=== PATIENT | female | born 1950 ===

== ENCOUNTER 2022-01-19 16:59 | Outpatient (CLI) | payer MEDICARE, OTHER, SELFPAY ==
[2022-01-19 11:04] LABS: Albumin* 4.6 g/dL (3.3-5.0)
[2022-01-19 11:05] LABS: Chloride* 99 mmol/L (96-114); Potassium* 3.9 mmol/L (3.6-5.1); Sodium* 139 mmol/L (135-149)
[2022-01-19 11:07] LABS: Carbon Dioxide* 30 mmol/L (20-32); Cholesterol* 169 mg/dL (90-199); Creatinine* 1.2 mg/dL (0.5-1.5); Estimated Glomerular Filt Rate 49 ml/min
[2022-01-19 11:08] LABS: Alanine Aminotransferase* 47 U/L (4-35); Alkaline Phosphatase* 83 U/L (40-150); Aspartate Amino Transferase* 48 U/L (12-35); Bilirubin Total* 0.6 mg/dL (0.1-1.5); Blood Urea Nitrogen* 21 mg/dL (7-30); Glucose* 99 mg/dL (60-115); TSH With Reflex to FT4* 0.059 uIU/mL (0.270-4.200); Triglycerides* 69 mg/dL (40-149)
[2022-01-19 11:20] LABS: HDL Cholesterol* 117 mg/dL (>=50); LDL Cholesterol Calculated 38 mg/dL (<100)
[2022-01-19 11:38] LABS: Free T4 Free Thyroxine* 1.39 ng/dL (0.70-1.85)
== END 2022-01-19 17:00 | disposition home or self-care (01) ==
PROVIDERS: PCP Internal Medicine; Visit Provider Internal Medicine
DX: E03.9 Hypothyroidism, unspecified (principal); I25.10 Atherosclerotic heart disease of native coronary artery without angina pectoris
CPT/HCPCS: 80053; 80061; 84439; 84443

== ENCOUNTER 2022-04-18 13:20 | Outpatient (CLI) | payer MEDICARE, OTHER, SELFPAY ==
--- NOTE | 2022-04-18 13:20 | CRLHL7_ITS ---
For Patients: As a result of the Century Cures Act, medical imaging exams and procedure reports are released immediately into your electronic medical record. You may view this report before your referring provider. If you have questions, please contact your health care provider. BILATERAL SCREENING MAMMOGRAM WITH COMPUTER-AIDED DETECTION TECHNIQUE: CC and MLO views were obtained. These mammographic images have been obtained using full-field digital technique. These mammographic images were interpreted with the benefit of computer-aided detection. COMPARISON FILM: 01/30/20; 02/24/19; 12/25/17. FINDINGS: The breasts are almost entirely fatty IMPRESSION: There is no radiographic evidence for malignancy. ASSESSMENT: BI-RADS Category 1: Negative RECOMMENDATION: Routine screening mammogram in 1 year. A lay language report of this examination will be provided to the patient. Alli Marsh M.D. Diagnostic Radiologist [email or web address] Transcribed: 2:38 pm DW/Dictated by: Alli Marsh MD @ 04/19/2022 12:52:00 PM (Electronically Signed)
== END 2022-04-18 13:21 | disposition home or self-care (01) ==
LOC: MAMMO 13:21
PROVIDERS: PCP Internal Medicine; Visit Provider Internal Medicine
DX: Z12.31 Encounter for screening mammogram for malignant neoplasm of breast (principal)
CPT/HCPCS: 77067

== ENCOUNTER 2023-03-13 11:07 | Outpatient (CLI) | payer MEDICARE, OTHER, SELFPAY | END 2023-03-13 11:08 | disposition home or self-care (01) | LOC: NFLDREF 03-15 05:46 | PROVIDERS: PCP Internal Medicine; Referring Provider Internal Medicine; Visit Provider Internal Medicine | DX: E03.9 Hypothyroidism, unspecified (principal); I10 Essential (primary) hypertension; E78.5 Hyperlipidemia, unspecified; R73.03 Prediabetes; I25.10 Atherosclerotic heart disease of native coronary artery without angina pectoris | CPT/HCPCS: 80053; 80061; 84439; 84443 ==

== ENCOUNTER 2024-03-17 07:51 | Outpatient (CLI) | payer MEDICARE, OTHER, SELFPAY | END 2024-03-17 07:52 | disposition home or self-care (01) | LOC: RAD 07:53 | PROVIDERS: PCP Internal Medicine; Visit Provider Internal Medicine Cardiovascular Disease | DX: I67.9 Cerebrovascular disease, unspecified (principal); I25.10 Atherosclerotic heart disease of native coronary artery without angina pectoris | CPT/HCPCS: 93306 ==

== ENCOUNTER 2024-05-09 11:08 | Outpatient (CLI) | payer MEDICARE, OTHER, SELFPAY | END 2024-05-09 11:09 | disposition home or self-care (01) | LOC: NFLDREF 05-13 08:46 | PROVIDERS: PCP Internal Medicine; Referring Provider Internal Medicine; Visit Provider Internal Medicine | DX: I25.10 Atherosclerotic heart disease of native coronary artery without angina pectoris (principal); E03.9 Hypothyroidism, unspecified; I10 Essential (primary) hypertension; R73.03 Prediabetes | CPT/HCPCS: 80053; 80061; 84443 ==

== ENCOUNTER 2024-07-22 11:07 | Emergency (ER) | payer MEDICARE, OTHER, SELFPAY ==
--- OUTSIDE RECORDS SUMMARY | 2024-07-22 11:10 | XMS_ITS | Clinical Summary ---
Author Organization [facility] Address [address] [place] [address] Care Team Providers Care Octave Board Racker Name Role Phone Jaenll Velasco MD Primary Care Provider [phone] Allergies Active Allergy Reactions Criticality Noted Date Comments Diatrizoate Allergen Edema 11/18/2019 Eyes and lips swell Dantrolene Hypertension High 11/18/2019 Iodine Edema Low 11/18/2019 Facial swelling Sulfa (Sulfonamide Antibiotics) Edema Low 11/18/2019 Facial swelling Theophylline Anaphylaxis High 11/18/2019 Fluticasone-Umeclidin- Vilanter Behavioral Disturbances,Headache Medium 11/18/2019 Medications cloNIDine HCL (CATAPRES) 0.3 mg tablet Take 0.3 mg by mouth 2 times daily. 0 Active hydroCHLOROthiaz svitlana 50 mg tablet Take 50 mg by mouth once daily. 0 Active lamoTRIgine (LAMICTAL) 200 mg tablet Take 200 mg by mouth once daily. 0 Active levothyroxine (SYNTHROID) 100 mcg tablet Take 100 mcg by mouth once daily. 0 Active PARoxetine (PAXIL) 10 mg tablet Take 10 mg by mouth once daily. 0 Active amoxicillin (AMOXIL) 500 mg capsule Take 2,000 mg by mouth each time if needed for Other (Specify) (prior to dental appt). Active omeprazole (PRILOSEC) 20 mg Delayed-Release capsule Take 20 mg by mouth once daily before a meal. Active potassium chloride (KLOR-CON M20) 20 mEq Extended-Release tablet Take 20 mEq by mouth 2 times daily with meals. Active aspirin (ECOTRIN) 81 mg enteric coated tabletIndication s:NSTEMI (non-ST elevated myocardial infarction) (HC) Take 1 tablet by mouth once daily with a meal. Take indefinitely 100 tablet 11/19/2019 9:46 AM CDT 0 Active clopidogreL (PLAVIX) 75 mg tabletIndication s:NSTEMI (non-ST elevated myocardial infarction) (HC) Take 1 tablet by mouth every morning. Take for 6 months 90 tablet 1 11/19/2019 9:46 AM CDT 0 Active rosuvastatin (CRESTOR) 20 mg tabletIndication s:NSTEMI (non-ST elevated myocardial infarction) (HC) Take 1 Tablet (20 mg) by mouth at bedtime. 90 Tablet 3 1 Active nitroglycerin (NITROSTAT) 0.4 mg sublingual tabletIndication s:Coronary artery disease, unspecified vessel or lesion type, unspecified whether angina present, unspecified whether [place] or transplanted heart Place 1 Tablet (0.4 mg) under the tongue every 5 minutes if needed for Chest Pain. DO NOT EXCEED A TOTAL OF 3 DOSES IN 15 MINUTES 25 Tablet 3 5 Active benzonatate (TESSALON) 200 mg capsule TAKE 1 CAPSULE BY MOUTH 2 TO 3 TIMES PER DAY FOR 5 DAYS NEEDED FOR COUGH 4 Active clindamycin (CLEOCIN-T) 1 % lotion APPLY LOTION TOPICALLY TWICE DAILY TO FACIAL AREAS 4 Active doxycycline 20 mg tablet 4 Active predniSONE (DELTASONE) 10 mg tabletIndication s:Chronic obstructive pulmonary disease, unspecified COPD type (HC) TAKE 4 TABLETS BY MOUTH ONCE DAILY FOR 3 DAYS THEN DROP 1 TABLET EVERY 4TH DAY UNTIL OFF OR DIRECTED 30 Tablet 1 5 Active albuterol HFA (PRO-AIR; VENTOLIN; PROVENTIL) 90 mcg/actuation inhalerIndicatio ns:Chronic obstructive pulmonary disease, unspecified COPD type (HC) Inhale 2 Puffs by mouth every 4 hours if needed for Shortness Of Breath. 3 Each 3 5 Active albuterol 0.083% (2.5 mg/3 mL) neb solutionIndicati ons:Chronic obstructive pulmonary disease, unspecified COPD type (HC) Inhale 3 mL (2.5 mg) via a nebulizer every 4 hours if needed for Shortness Of Breath. 540 mL 3 5 Active budesonide-formo teroL (SYMBICORT) 160-4.5 mcg/actuation (160-4.5 mcg each actuation) inhalerIndicatio ns:Chronic obstructive pulmonary disease, unspecified COPD type (HC) Inhale 2 Puffs by mouth two times daily. 3 Each 3 5 Active montelukast (Singulair) 10 mg tabletIndication s:Chronic obstructive pulmonary disease, unspecified COPD type (HC) Take 1 Tablet (10 mg) by mouth at bedtime. 90 Tablet 3 5 Active nebulizer accessories misc miscIndications: Chronic obstructive pulmonary disease, unspecified COPD type (HC) As directed. 3 Each 3 5 Active Active Problems Problem Noted Date Diagnosed Date Coronary artery disease invo lving [place] coronary artery of [place] heart without angina pectoris 12/26/2019 Palpitation 12/26/2019 COPD (chronic obstructive pulmonary disease) 03/2019 Asthma 11/18/2019 Hypertension 11/18/2019 Prediabetes 11/18/2019 GERD (gastroesophageal reflux disease) 0 Hypothyroidism 11/18/2019 NSTEMI (non-ST elevated myocardial infarction) 0 11/18/2019 Resolved Problems Problem Noted Date Diagnosed Date Resolved Date CKD (chronic kidney disease) 12/26/2019 12/17/2020 Encounters Date Type Department Care Team Description 05/02/2024 Orders Only [facility] Scanner 1 scan: (1-Ord) INCOMING RECORDS-DIAGNOSTIC TEST, UNKNOWN FACILITY, 05/02/2024 05/01/2024 Orders Only [facility] Scanner 1 scan: (1-Ord) INCOMING RECORDS-SLEEP STUDY, [facility], 05/01/2024 05/01/2024 Orders Only [facility] Scanner 1 scan: (1-Ord) INCOMING RECORDS-SLEEP STUDY, [facility], 05/01/2024 from Last 3 Months Family History Medical History Relation Name Comments Cancer Father Other Other No known hx of heart disease Cancer Sister breast Relation Name Status Comments Father Other Sister Social History Tobacco Use Types Packs/Day Years Used Date Smoking Tobacco: Former Smokeless Tobacco: Never Comments:stopped in 1999 Alcohol Use Standard Drinks/Week Comments Not Currently 0 (1 standard drink = 0.6 oz pur e alcohol) has been a year Financial Resource Strain Answer Date R ecorded Difficulty of Paying Living Expenses Not on file 03/19/2021 Difficulty of Paying Living Expenses Not on file 03/19/2021 Comments Unknown Sex and Gender Information Value Date Recorded Sex Assigned at Not on file Legal Sex Female 7:43 AM [employer] Gender Identity Not on file Sexual Orientation Not on file Obstetrics History Last Filed Vital Signs Vital Sign Reading Time Taken Comments Blood Pressure 134/76 04/04/2024 12:13 PM [employer] Pulse 86 04/04/2024 12:13 PM [employer] Temperature 36.6 C (97.8 F) 11/19/2019 8:45 AM CDT Respiratory Rate 18 11/19/2019 8:45 AM CDT Oxygen Saturation 96% 04/04/2024 12:13 PM [employer] Inhaled Oxygen Concentration - - Weight 81.6 kg (180 lb) 04/04/2024 12:13 PM [employer] Height 167.6 cm (5' 6) 04/04/2024 12:13 PM [employer] Body Mass Index 29.05 04/04/2024 12:13 PM [employer] Plan of Treatment Health Maintenance Due Date Last Done Comments Tdap 08/31/1962 Depression screening for age 12+ 1963 Hepatitis C screening for age 18-79 08/31/1969 Pneumococcal series for age 50+ (1 of 2 - PCV) 08/31/1970 Tetanus booster 1971 Colonoscopy through age 75 08/31/1996 Mammogram for age 45-75 08/31/1996 Zoster (shingles) series for age 50+ (1 of 2) 08/31/2001 RSV vaccine for adults or pr egnancy (1 - Risk 60-74 years 1-dose series) 2011 DEXA/DXA scan for age 65+ 08/31/2016 Medicare Wellness for age 65+ 08/31/2016 COVID-19 vaccine series ( - season) 2023 06/16/2020, 05/18/2020 Influenza Vaccine (Season Ended) 2024 Lipids for age 45-75 11/17/2024 11/18/2019 BMI (ht and wt on same day) for age 18+ 04/04/2025 0 04/04/2024 Procedures Procedure Name Priority Date/Time Associated Diagnosis Comments SCAN CORRESP-DIAGNOSTICS 05/02/2024 12:00 AM [employer] SCAN CORRESP-DIAGNOSTICS 05/01/2024 12:00 AM [employer] SCAN CORRESP-DIAGNOSTICS 05/01/2024 12:00 AM [employer] LIPID PANEL Add On 11/18/2019 3:58 AM CDT from Last 3 Months or Most Recently Relevant to Health Maintenance Results * SCAN CORRESP-DIAGNOSTICS (05/02/2024 12:00 AM P[employer]ER) us Scanner OTHER Final Result * SCAN CORRESP-DIAGNOSTICS (05/01/2024 12:00 AM PIPE [employer]ER) us Scanner OTHER Final Result * SCAN CORRESP-DIAGNOSTICS (05/01/2024 12:00 AM P[employer]) us Scanner OTHER Final Result * Lipid Panel AM (11/18/2019 3:58 AM CDT) CHOLESTEROL,TOTAL 184 100 - 199 mg/dL 11/18/2019 5:44 AM CDT [facility] TRIGLYCERIDES 143 <150 mg/dL 11/18/2019 5:44 AM CDT [facility] HDL CHOLESTEROL 61 >40 mg/dL 0 5:44 AM CDT [facility] NON-HDL CHOLESTEROL 123 <145 mg/dl 11/18/2019 5:44 AM CDT [facility] CHOL/HDL RATIO 3.02 <4.50 11/18/2019 5:44 AM CDT [facility] LDL CHOLESTEROL 94 <=130 mg/dL 11/18/2019 5:44 AM CDT [facility] TR[facility] PROVIDER ORDERED STATUS RANDOM 11/18/2019 5:44 AM CDT [facility] TR[facility] LABOR[facility]ORY Blood BLOOD SPECIMEN / Unknown Capillary / Unknown 11/18/2019 3:58 AM CDT 11/18/2019 4:21 AM CDT us Sergio Crowell MD CHEMISTRY Ene l Result [facility] [address] [place] [address], [place] from Last 3 Months or Most Recently Relevant to Health Maintenance Insurance MEDICA [employer]IME SOL[employer] [place] MED[employer] PRIME [employer] MR PB ONLY Advance Directives * Full Code (Latest Code Status on File) Date Activated Date Inactivated Comments 11/18/2019 2:52 AM 11/19/2019 3:07 PM Question Answer Comments Code Status Discussion: Discussed Care Teams Octave Board Racker Relationship Specialty Start Date End Date Janell Velasco MD [address] [place] [address] (work) PCP - General Internal Medicine 11/27/19
[2024-07-22 11:14] VITALS: BP 117/67; PULSE 94; RESP 18; TEMP 36.1; O2SAT 98; BMI 31.5
--- NOTE | 2024-07-22 11:21 | ED_ITS ---
HPI - Neck Pain/Injury General Time Seen by Provider: 11:22 Date Seen: 07/22/24 Chief Complaint: Neck Injury/Pain Stated Complaint: Pain in neck Time Seen by Provider: 07/22/24 11:21 Source: patient and RN notes reviewed Mode of arrival: ambulatory Limitations: no limitations Related Data Home Medications ?Medication ?Instructions ?Recorded ?Confirmed Lactobacillus acidophilus 10 mg PO QDAY 01/24/22 03/20/24 acetaminophen 500 mg capsule 500 mg PO Q6H PRN 01/24/22 03/20/24 albuterol 90 mcg/actuation aerosol 2 spray inhalation PRN 01/24/22 03/20/24 inhaler albuterol sulfate 1.25 mg/3 mL 1.25 mg continuous nebulization PRN 01/24/22 03/20/24 solution for nebulization ascorbic acid (vitamin C) 500 mg 1 mg PO 01/24/22 03/20/24 capsule aspirin 81 mg tablet,delayed 81 mg PO DAILY 01/24/22 03/20/24 release budesonide-formoterol HFA 160 2 inhalation BID 01/24/22 03/20/24 mcg-4.5 mcg/actuation aerosol inhaler cholecalciferol (vitamin D3) 25 25 mcg PO DAILY 01/24/22 03/20/24 mcg (1,000 unit) tablet clindamycin phosphate 1 % lotion 1 topical BID 01/24/22 03/20/24 folic acid 400 mcg tablet 0.4 mg PO QDAY 01/24/22 03/20/24 magnesium 200 mg tablet 400 mg PO QDAY 01/24/22 03/20/24 montelukast 10 mg tablet 10 mg PO .Bedtime 01/24/22 03/20/24 nitroglycerin 0.4 mg sublingual 0.4 mg sublingual PRN 01/24/22 03/20/24 tablet melatonin PO .hs 02/05/24 03/20/24 multivitamin (One-A-Day Essential 1 tab PO QDAY 02/05/24 03/20/24 tablet) nitroglycerin [Nitrostat] sublingual .prn 02/05/24 03/20/24 turmeric PO DAILY 02/05/24 03/20/24 vitamin A palmitate PO DAILY 02/05/24 03/20/24 vitamin B complex [B PO DAILY 02/05/24 03/20/24 Complex-Vitamin B12] vitamin E acetate PO DAILY 02/05/24 03/20/24 doxycycline hyclate 20 mg tablet 20 mg PO BID 03/20/24 03/20/24 Previous Rx's ?Medication ?Instructions ?Recorded lamotrigine 200 mg tablet 200 mg PO QDAY #90 tabs 04/24/24 (Lamictal) clonidine HCl 0.3 mg tablet 0.3 mg PO BID #180 tabs 05/13/24 hydrochlorothiazide 50 mg tablet 50 mg PO QDAY #90 tabs 05/13/24 levothyroxine 100 mcg tablet 100 mcg PO QDAY #90 tabs 05/13/24 (Synthroid) omeprazole 40 mg capsule,delayed 40 mg PO DAILY #90 caps 05/13/24 release paroxetine HCl 10 mg tablet 10 mg PO DAILY #90 tabs 05/13/24 potassium chloride 20 mEq 20 meq PO BID #180 tabs 05/13/24 tablet,extended release(part/cryst) rosuvastatin 20 mg tablet 20 mg PO DAILY #90 tabs 05/13/24 prednisone 20 mg tablet 40 mg (2 x 20 mg) PO QDAY #10 tabs 07/14/24 Allergies Allergy/AdvReac Type Severity Reaction Status Date / Time dantrolene Allergy Severe elevated Verified 05/13/24 10:55 blood pressure morphine Allergy Mild swelling Verified 05/13/24 10:55 fluticasone furoate (From AdvReac Unknown Verified 05/13/24 10:55 Trelegy Ellipta) umeclidinium (From Trelegy AdvReac Unknown Verified 05/13/24 10:55 Ellipta) vilanterol (From Trelegy AdvReac Unknown Verified 05/13/24 10:55 Ellipta) Iodinated Diagnostic Agents Allergy Mild facial Uncoded 05/13/24 10:55 swelling Sulfa drugs Allergy Mild facial Uncoded 05/13/24 10:55 swelling [facility] Medical History History of retinal hemorrhage ?Z86.69 - Personal history of other diseases of the nervous system and sense organs (ICD-10) Surgical History Functional dyspepsia ?K30 - Functional dyspepsia (ICD-10) History of carpal tunnel surgery ?Z98.890 - Other specified postprocedural states (ICD-10) History of total knee replacement (05/26/09) ?Z96.659 - Presence of unspecified artificial knee joint (ICD-10) History of tonsillectomy (12/01/10) ?Z90.89 - Acquired absence of other organs (ICD-10) History of colonoscopy (09/28/16) ?Z98.890 - Other specified postprocedural states (ICD-10) History of cholecystectomy (12/01/10) ?Z90.49 - Acquired absence of other specified parts of digestive tract (ICD- 10) History of bilateral cataract extraction (2020) ?Z98.41 - Cataract extraction status, right eye (ICD-10) ?Z98.42 - Cataract extraction status, left eye (ICD-10) Social History What is your current living situation?: I presently have a place to live Problems where you live: no known problems In the past 12 months, utilities in danger of being shut off: no In past 12 months, lack of transportation kept you from medical appts, meetings, work, or getting things needed for daily living: no In the past 12 mos, have been you worried that your food would run out before you had money to buy more?: never true In the past 12 mos, the food you bought just didn't last and you didn't have money to buy more?: never true Smoking Status: Former smoker How often does anyone, including family, friends and others, physically hurt you : never How often does anyone, including family, friends and others, insult or talk down to you: never How often does anyone, including family, friends and others, threaten you with harm: never How often does anyone, including family, friends and others, scream or curse at you: never Exam Const: Vital Signs, click to edit/add: Vital Signs - 24 hr 07/22/24 11:14 Temperature 97 F L Pulse Rate [Pulse Oximeter] 94 Respiratory Rate 18 Blood Pressure [Ri ght Upper Arm] 117/67 Pulse Oximetry 98 Oxygen Delivery Me thod Room Air Course Vital Signs Vital signs: Initial Vital Signs Temperature 97 F L 07/22/24 11:14 Temperature Source Temporal Artery Scan 07/22/24 11:14 Pulse Rate 94 07/22/24 11:14 Respiratory Rate 18 07/22/24 11:14 Blood Pressure 117/67 07/22/24 11:14 Blood Pressure Mean 83 07/22/24 11:14 Pulse Oximetry 98 07/22/24 11:14 Oxygen Delivery Method Room Air 07/22/24 11:14 Vital Signs Temperature 97 F L 07/22/24 11:14 Pulse Rate 94 07/22/24 11:14 Respiratory Rate 18 07/22/24 11:14 Blood Pressure 117/67 07/22/24 11:14 Pulse Oximetry 98 07/22/24 11:14 Oxygen Delivery Method Room Air 07/22/24 11:14 Temperature 97 F L 07/22/24 11:14 Pulse Rate 94 07/22/24 11:14 Respiratory Rate 18 07/22/24 11:14 Blood Pressure 117/67 07/22/24 11:14 Pulse Oximetry 98 07/22/24 11:14 Oxygen Delivery Method Room Air 07/22/24 11:14 Discharge Plan Discharge Prescriptions: No Action clindamycin phosphate 1 % lotion 1 topical BID albuterol 90 mcg/actuation aerosol 2 spray inhalation PRN montelukast 10 mg tablet 10 mg PO .Bedtime budesonide-formoterol 160-4.5 mcg/actuation HFA aerosol inhaler 2 inhalation BID aspirin 81 mg tablet,delayed release (DR/EC) 81 mg PO DAILY nitroglycerin 0.4 mg tablet, sublingual 0.4 mg sublingual PRN cholecalciferol (vitamin D3) 25 mcg (1,000 unit) tablet 25 mcg PO DAILY magnesium 200 mg tablet 400 mg PO QDAY acetaminophen 500 mg capsule 500 mg PO Q6H PRN ascorbic acid (vitamin C) 500 mg capsule 1 mg PO Lactobacillus acidophilus Capsule 10 mg PO QDAY folic acid 400 mcg tablet 0.4 mg PO QDAY albuterol sulfate 1.25 mg/3 mL solution for nebulization 1.25 mg continuous nebulization PRN clonidine HCl 0.3 mg tablet 0.3 mg PO BID Qty: 180 3RF hydrochlorothiazide 50 mg tablet 50 mg PO QDAY Qty: 90 3RF levothyroxine [Synthroid] 100 mcg tablet 100 mcg PO QDAY Qty: 90 3RF omeprazole 40 mg capsule,delayed release(DR/EC) 40 mg PO DAILY Qty: 90 3RF paroxetine HCl 10 mg tablet 10 mg PO DAILY Qty: 90 3RF potassium chloride 20 mEq tablet,ER particles/crystals 20 meq PO BID Qty: 180 3RF rosuvastatin 20 mg tablet 20 mg PO DAILY Qty: 90 3RF doxycycline hyclate 20 mg tablet 20 mg PO BID vitamin B complex [B Complex-Vitamin B12] PO DAILY multivitamin [One-A-Day Essential] Tablet 1 tab PO QDAY vitamin E acetate PO DAILY turmeric PO DAILY melatonin PO .hs nitroglycerin [Nitrostat] sublingual .prn vitamin A palmitate PO DAILY lamotrigine [Lamictal] 200 mg tablet 200 mg PO QDAY Qty: 90 3RF prednisone 20 mg tablet 40 mg PO QDAY Qty: 10 0RF Follow Up/Referrals: Janell Velasco MD [Primary Care Provider] -
--- NOTE | 2024-07-22 11:39 | ED_ITS ---
HPI - Neck Pain/Injury General Chief Complaint: Neck Injury/Pain Stated Complaint: Pain in neck Time Seen by Provider: 07/22/24 11:21 History of Present Illness HPI Narrative: This 73-year-old female comes in reporting a couple days of neck pain that she rates at 7/10 in severity. She states that she has difficulty sleeping at night because of this pain. The pain does not radiate down either arm. She does not report any injury event or strenuous activity that triggered this. She has been using heat and Tylenol without much relief. She has been attempting to stretch also. Related Data Home Medications ?Medication ?Instructions ?Recorded ?Confirmed Lactobacillus acidophilus 10 mg PO QDAY 01/24/22 03/20/24 acetaminophen 500 mg capsule 500 mg PO Q6H PRN 01/24/22 03/20/24 albuterol 90 mcg/actuation aerosol 2 spray inhalation PRN 01/24/22 03/20/24 inhaler albuterol sulfate 1.25 mg/3 mL 1.25 mg continuous nebulization PRN 01/24/22 03/20/24 solution for nebulization ascorbic acid (vitamin C) 500 mg 1 mg PO 01/24/22 03/20/24 capsule aspirin 81 mg tablet,delayed 81 mg PO DAILY 01/24/22 03/20/24 release budesonide-formoterol HFA 160 2 inhalation BID 01/24/22 03/20/24 mcg-4.5 mcg/actuation aerosol inhaler cholecalciferol (vitamin D3) 25 25 mcg PO DAILY 01/24/22 03/20/24 mcg (1,000 unit) tablet clindamycin phosphate 1 % lotion 1 topical BID 01/24/22 03/20/24 folic acid 400 mcg tablet 0.4 mg PO QDAY 01/24/22 03/20/24 magnesium 200 mg tablet 400 mg PO QDAY 01/24/22 03/20/24 montelukast 10 mg tablet 10 mg PO .Bedtime 01/24/22 03/20/24 nitroglycerin 0.4 mg sublingual 0.4 mg sublingual PRN 01/24/22 03/20/24 tablet melatonin PO .hs 02/05/24 03/20/24 multivitamin (One-A-Day Essential 1 tab PO QDAY 02/05/24 03/20/24 tablet) nitroglycerin [Nitrostat] sublingual .prn 02/05/24 03/20/24 turmeric PO DAILY 02/05/24 03/20/24 vitamin A palmitate PO DAILY 02/05/24 03/20/24 vitamin B complex [B PO DAILY 02/05/24 03/20/24 Complex-Vitamin B12] vitamin E acetate PO DAILY 02/05/24 03/20/24 doxycycline hyclate 20 mg tablet 20 mg PO BID 03/20/24 03/20/24 Previous Rx's ?Medication ?Instructions ?Recorded lamotrigine 200 mg tablet 200 mg PO QDAY #90 tabs 04/24/24 (Lamictal) clonidine HCl 0.3 mg tablet 0.3 mg PO BID #180 tabs 05/13/24 hydrochlorothiazide 50 mg tablet 50 mg PO QDAY #90 tabs 05/13/24 levothyroxine 100 mcg tablet 100 mcg PO QDAY #90 tabs 05/13/24 (Synthroid) omeprazole 40 mg capsule,delayed 40 mg PO DAILY #90 caps 05/13/24 release paroxetine HCl 10 mg tablet 10 mg PO DAILY #90 tabs 05/13/24 potassium chloride 20 mEq 20 meq PO BID #180 tabs 05/13/24 tablet,extended release(part/cryst) rosuvastatin 20 mg tablet 20 mg PO DAILY #90 tabs 05/13/24 prednisone 20 mg tablet 40 mg (2 x 20 mg) PO QDAY #10 tabs 07/14/24 cyclobenzaprine 10 mg tablet 10 mg PO TID #15 tabs 07/22/24 ketorolac 10 mg tablet 10 mg PO TID 5 days #15 tabs 07/22/24 Allergies Allergy/AdvReac Type Severity Reaction Status Date / Time dantrolene Allergy Severe elevated Verified 05/13/24 10:55 blood pressure morphine Allergy Mild swelling Verified 05/13/24 10:55 fluticasone furoate (From AdvReac Unknown Verified 05/13/24 10:55 Trelegy Ellipta) umeclidinium (From Trelegy AdvReac Unknown Verified 05/13/24 10:55 Ellipta) vilanterol (From Trelegy AdvReac Unknown Verified 05/13/24 10:55 Ellipta) Iodinated Diagnostic Agents Allergy Mild facial Uncoded 05/13/24 10:55 swelling Sulfa drugs Allergy Mild facial Uncoded 05/13/24 10:55 swelling Review of Systems Status of ROS: Reports: 10 or more systems reviewed and unremarkable except as noted in History and below Narrative: Constitutional: No fevers, no weight gain or loss. Eyes: No discharge. No vision changes. HENT: No congestion, no sore throat, no ear pain. Cardiovascular: No chest pain, no palpitations. Respiratory: No shortness of breath, no wheezes, no cough. Gastrointestinal: No abdominal pain, no vomiting, no diarrhea. Genitourinary: No dysuria, no hematuria. Musculoskeletal: Normal range of motion. Decreased range of motion of her neck due to neck pain. Skin: No rashes, no pruritis. Neurological: No dizziness, weakness, sensory change, speech change. Endo/Heme/Allergies: No bruising or bleeding. No polydipsia. Pysch: no suicidality, no anxiety, no insomnia. All other systems reviewed and are negative. [facility] Medical History History of retinal hemorrhage ?Z86.69 - Personal history of other diseases of the nervous system and sense organs (ICD-10) Surgical History Functional dyspepsia ?K30 - Functional dyspepsia (ICD-10) History of carpal tunnel surgery ?Z98.890 - Other specified postprocedural states (ICD-10) History of total knee replacement (05/26/09) ?Z96.659 - Presence of unspecified artificial knee joint (ICD-10) History of tonsillectomy (12/01/10) ?Z90.89 - Acquired absence of other organs (ICD-10) History of colonoscopy (09/28/16) ?Z98.890 - Other specified postprocedural states (ICD-10) History of cholecystectomy (12/01/10) ?Z90.49 - Acquired absence of other specified parts of digestive tract (ICD- 10) History of bilateral cataract extraction (2020) ?Z98.41 - Cataract extraction status, right eye (ICD-10) ?Z98.42 - Cataract extraction status, left eye (ICD-10) Social History What is your current living situation?: I presently have a place to live Problems where you live: no known problems In the past 12 months, utilities in danger of being shut off: no In past 12 months, lack of transportation kept you from medical appts, meetings, work, or getting things needed for daily living: no In the past 12 mos, have been you worried that your food would run out before you had money to buy more?: never true In the past 12 mos, the food you bought just didn't last and you didn't have money to buy more?: never true Smoking Status: Former smoker How often does anyone, including family, friends and others, physically hurt you : never How often does anyone, including family, friends and others, insult or talk down to you: never How often does anyone, including family, friends and others, threaten you with harm: never How often does anyone, including family, friends and others, scream or curse at you: never Exam Narrative: Exam Narrative: Constitutional: Well-developed, well-nourished, no acute distress. HEENT: Normocephalic, atraumatic. Neck: Decreased range of motion due to pain. No tenderness when palpating along her spine. Heart: Regular. No murmurs. Normal rate. Intact distal pulses. Lungs: Clear to auscultation. No chest discomfort. No wheezes, rhonchi, or rales. Abdomen: Normal bowel sounds. Nontender. No rebound tenderness. Genitalia: Deferred. Back: No midline tenderness. Normal range of motion. Extremities: Normal range of motion. No injury. Skin: Intact. No rash. Warm. No erythema or pallor. Neurologic: No altered sensation. No weakness. Alert and oriented. Psychiatric: No suicidality. No anxiety or depression. No insomnia. Nursing notes and vitals signs are reviewed. Const: Vital Signs, click to edit/add: Vital Signs - 24 hr 07/22/24 11:14 Temperature 97 F L Pulse Rate [Pulse Oximeter] 94 Respiratory Rate 18 Blood Pressure [Ri ght Upper Arm] 117/67 Pulse Oximetry 98 Oxygen Delivery Me thod Room Air Course Vital Signs Vital signs: Initial Vital Signs Temperature 97 F L 07/22/24 11:14 Temperature Source Temporal Artery Scan 07/22/24 11:14 Pulse Rate 94 07/22/24 11:14 Respiratory Rate 18 07/22/24 11:14 Blood Pressure 117/67 07/22/24 11:14 Blood Pressure Mean 83 07/22/24 11:14 Pulse Oximetry 98 07/22/24 11:14 Oxygen Delivery Method Room Air 07/22/24 11:14 Vital Signs Temperature 97 F L 07/22/24 11:14 Pulse Rate 94 07/22/24 11:14 Respiratory Rate 18 07/22/24 11:14 Blood Pressure 117/67 07/22/24 11:14 Pulse Oximetry 98 07/22/24 11:14 Oxygen Delivery Method Room Air 07/22/24 11:14 Temperature 97 F L 07/22/24 11:14 Pulse Rate 94 07/22/24 11:14 Respiratory Rate 18 07/22/24 11:14 Blood Pressure 117/67 07/22/24 11:14 Pulse Oximetry 98 07/22/24 11:14 Oxygen Delivery Method Room Air 07/22/24 11:14 MDM - Neck Pain/Injury MDM Narrative Medical decision making narrative: This 73-year-old female comes in with neck pain over the past couple days. There was no injury event or strenuous activity to trigger this. I did discuss the role of imaging studies but indicated that it is not mandatory at this time given her lack of mechanism of injury and no radiating pain. The patient received prescriptions for Toradol and Flexeril. I advised her regarding signs and symptoms that would indicate a need for return re-evaluation. Discharge Plan Discharge Clinical Impression: Acute torticollis Patient Disposition: Home, Self-Care Condition: Stable Additional Instructions: Take medication as needed and indicated. Continue with gentle stretching and increase activity as tolerated. Follow up with MD return if worsening. Prescriptions: New cyclobenzaprine 10 mg tablet 10 mg PO TID Qty: 15 0RF ketorolac 10 mg tablet 10 mg PO TID 5 Days Qty: 15 0RF No Action clindamycin phosphate 1 % lotion 1 topical BID albuterol 90 mcg/actuation aerosol 2 spray inhalation PRN montelukast 10 mg tablet 10 mg PO .Bedtime budesonide-formoterol 160-4.5 mcg/actuation HFA aerosol inhaler 2 inhalation BID aspirin 81 mg tablet,delayed release (DR/EC) 81 mg PO DAILY nitroglycerin 0.4 mg tablet, sublingual 0.4 mg sublingual PRN cholecalciferol (vitamin D3) 25 mcg (1,000 unit) tablet 25 mcg PO DAILY magnesium 200 mg tablet 400 mg PO QDAY acetaminophen 500 mg capsule 500 mg PO Q6H PRN ascorbic acid (vitamin C) 500 mg capsule 1 mg PO Lactobacillus acidophilus Capsule 10 mg PO QDAY folic acid 400 mcg tablet 0.4 mg PO QDAY albuterol sulfate 1.25 mg/3 mL solution for nebulization 1.25 mg continuous nebulization PRN clonidine HCl 0.3 mg tablet 0.3 mg PO BID Qty: 180 3RF hydrochlorothiazide 50 mg tablet 50 mg PO QDAY Qty: 90 3RF levothyroxine [Synthroid] 100 mcg tablet 100 mcg PO QDAY Qty: 90 3RF omeprazole 40 mg capsule,delayed release(DR/EC) 40 mg PO DAILY Qty: 90 3RF paroxetine HCl 10 mg tablet 10 mg PO DAILY Qty: 90 3RF potassium chloride 20 mEq tablet,ER particles/crystals 20 meq PO BID Qty: 180 3RF rosuvastatin 20 mg tablet 20 mg PO DAILY Qty: 90 3RF doxycycline hyclate 20 mg tablet 20 mg PO BID vitamin B complex [B Complex-Vitamin B12] PO DAILY multivitamin [One-A-Day Essential] Tablet 1 tab PO QDAY vitamin E acetate PO DAILY turmeric PO DAILY melatonin PO .hs nitroglycerin [Nitrostat] sublingual .prn vitamin A palmitate PO DAILY lamotrigine [Lamictal] 200 mg tablet 200 mg PO QDAY Qty: 90 3RF prednisone 20 mg tablet 40 mg PO QDAY Qty: 10 0RF Follow Up/Referrals: Janell Velasco MD [Primary Care Provider] - Stand Alone Forms: [facility] Info Instructions
--- OUTSIDE RECORDS SUMMARY | 2024-07-22 11:54 | XMS_ITS | Clinical Summary ---
Author Organization [facility] Address [address] [place] [address] Care Team Providers Care Business Center Representative Name Role Phone Janell Velasco MD Primary Care Provider [phone] Allergies Active Allergy Reactions Criticality Noted Date [...] type, unspecified whether angina present, unspecified whether [place] or transplanted heart Place 1 Tablet (0.4 [...] Diagnosed Date Coronary artery disease invo lving [place] coronary artery of [place] heart without angina pectoris 12/26/2019 Palpitation 12/26/2019 COPD (chronic obstructive pulmonary disease) 03/2019 Asthma 11/18/2019 Hypertension 11/18/2019 Prediabetes 11/18/2019 GERD (gastroesophageal reflux disease) 0 Hypothyroidism 11/18/2019 NSTEMI (non-ST elevated myocardial infarction) 0 11/18/2019 Resolved Problems Problem Noted Date Diagnosed Date Resolved Date CKD (chronic kidney disease) 12/26/2019 12/17/2020 Encounters Date Type Department Care Team Description 05/02/2024 Orders Only [facility] Scanner 1 scan: (1-Ord) INCOMING RECORDS-DIAGNOSTIC TEST, UNKNOWN FACILITY, 05/02/2024 05/01/2024 Orders Only [facility] Scanner 1 scan: (1-Ord) INCOMING RECORDS-SLEEP STUDY, [facility], 05/01/2024 05/01/2024 Orders Only [facility] Scanner 1 scan: (1-Ord) INCOMING RECORDS-SLEEP STUDY, [facility], 05/01/2024 from Last 3 Months [...] on file Legal Sex 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 Gender Identity Not on file Sexual Orientation Not on file Obstetrics History Last Filed Vital Signs Vital Sign Reading Time Taken Comments Blood Pressure 134/76 04/04/2024 12:13 PM [employer]Y DISTRICT MANAGER Pulse 86 04/04/2024 12:13 PM [employer]Y DISTRICT MANAGER Temperature 36.6 C (97.8 F) 11/19/2019 8:45 AM CDT Respiratory Rate 18 11/19/2019 8:45 AM CDT Oxygen Saturation 96% 04/04/2024 12:13 PM [employer]Y DISTRICT MANAGER Inhaled Oxygen Concentration - - Weight 81.6 kg (180 lb) 04/04/2024 12:13 PM [employer]ION[employer]SAFETY DISTRICT MANAGER Height 167.6 cm (5' 6) 04/04/2024 12:13 PM [employer] PRE[employer]ION[employer]SAFETY DISTRICT MANAGER Body Mass Index 29.05 04/04/2024 12:13 PM [employer]Y DISTRICT MANAGER Plan of Treatment Health Maintenance Due Date [...] Diagnosis Comments [facility] 05/02/2024 12:00 AM LOSS PREVENTION[employer]SAFETY DISTRICT MANAGER [facility]DIAGNOST[facility] 05/01/2024 12:00 AM LOSS PREVENTION/SAFETY DISTRICT MANAGER [facility]AGNOST[facility] 05/01/2024 12:00 AM LOSS PREVENTION/SAFETY DISTRICT MANAGER LIPID PANEL Add On 11/18/2019 3:58 AM CDT from Last 3 Months or Most Recently Relevant to Health Maintenance Results * [facility] (05/02/2024 12:00 AM LOSS PREVENTION/SAFETY DISTRICT MANAGER) us Scanner OTHER Final Result * [facility] (05/01/2024 12:00 AM LOSS PREVENTION/SAFETY DISTRICT MANAGER) us Scanner OTHER Final Result * [facility] (05/01/2024 12:00 AM LOSS PREVENTION/SAFETY DISTRICT MANAGER) us Scanner OTHER Final Result * Lipid Panel AM (11/18/2019 3:58 AM CDT) CHOLESTEROL,TOTAL 184 100 - 199 mg/dL 11/18/2019 5:44 AM CD[facility] TRIGLYCERIDES 143 <150 mg/dL 11/18/2019 5:44 AM CDT [facility] HDL CHOLESTEROL 61 >40 mg/dL 0 5:44 AM CDT [facility] NON-HDL CHOLESTEROL 123 <145 mg/dl 11/18/2019 5:44 AM CDT [facility] CHOL/HDL RATIO 3.02 <4.50 11/18/2019 5:44 AM CDT [facility] LDL CHOLESTEROL 94 <=130 mg/dL 11/18/2019 5:44 AM CDT [facility] PROVIDER ORDERED STATUS RANDOM 11/18/2019 5:44 AM CDT [facility] Blood BLOOD SPECIMEN / Unknown Capillary / Unknown 11/18/2019 3:58 AM CDT 11/18/2019 4:21 AM CDT us Sergio Crowell MD CHEMISTRY Ene l Result [facility] [address] [place] [address], [place] from Last 3 Months or Most Recently Relevant to Health Maintenance Insurance [employer] [place] [employer] mParticle MR PB ONLY Advance Directives * Full Code (Latest Code Status on File) Date Activated Date Inactivated Comments 11/18/2019 2:52 AM 11/19/2019 3:07 PM Question Answer Comments Code Status Discussion: Discussed Care Teams Business Center Representative Relationship Specialty Start Date End Date Janell Velasco MD [address] [place] [address] (work) PCP - General Internal Medicine 11/27/19
--- NOTE | 2024-07-22 12:36 | PC.NURSE ---
Patient arrived back at the ER stating that [facility] told her she needs a PA for the flexiril. [employer] called [facility] and they stated that is the case but without a PA, the cost of the medication would be $4. Reviewed this option with the patient and she will go back and pay the $4.
== END 2024-07-22 12:00 | disposition home or self-care (01) ==
LOC: ED 11:52
PROVIDERS: Emergency Provider Emergency Medicine Emergency Medical Services; PCP Internal Medicine
DX: M43.6 Torticollis (principal)
CPT/HCPCS: 99283; 99284